=== PATIENT | male | born 1955 | race Caucasian/White ===

== ENCOUNTER → 2016-12-31 | Outpatient (CLI) | payer OTHER ==
[~2016-12-31] MED LIST: COLACE-DPS100 MG PO; HYDROCODONE 5MG/5 MG PO; KEFLEX-DPS500 MG PO; LIPITOR DPS40 MG PO; MOBIC15 MG PO; PRILOSEC DPS20 MG PO; THERAPEUTIC MUL1 TAB PO; TYLENOL EXTRA500 M1 PO
== END | disposition home or self-care (01) ==
LOC: PTH.S 09:08
DX: Z00.00 Encounter for general adult medical examination without abnormal findings (principal)